=== PATIENT | female | born 1980 | race Caucasian/White ===

== ENCOUNTER → 2019-07-29 | Outpatient (CLI) | payer OTHER ==
--- NOTE | 2019-07-30 12:49 | MM ---
Reason for exam: screening (asymptomatic). Baseline mammogram. History: Family history of breast cancer in mother at age 58 and breast cancer in 2 aunts. Took hormonal contraceptives beginning at age 23. Physical Findings: Nurse did not find any significant physical abnormalities on exam. MG Screening Mammo w CAD Bilateral CC and MLO view(s) were taken. The breast tissue is extremely dense which could obscure a lesion on mammography. No significant findings. These results were verbally communicated with the patient and result sheet given to the patient on 07/29/19. ASSESSMENT: Benign, BI-RAD 2 RECOMMENDATION: Routine screening mammogram of both breasts in 1 year.
== END | disposition home or self-care (01) ==
LOC: RADMAMWWP 09:59
PROVIDERS: ATTEND Obstetrics & Gynecology
DX: Z12.31 Encounter for screening mammogram for malignant neoplasm of breast (principal); Z80.3 Family history of malignant neoplasm of breast
CPT/HCPCS: 77067

== ENCOUNTER → 2022-04-20 | Outpatient (CLI) | payer OTHER ==
--- NOTE | 2022-04-20 14:48 | US ---
EXAMINATION TYPE: US pelvic complete DATE OF EXAM: 04/20/2022 COMPARISON: NONE CLINICAL HISTORY: N92.6 irregular menses. Longer and more frequent menses TECHNIQUE: Transabdominal (TA). Transabdominal sonographic images of the pelvis were acquired. Date of LMP: 04/06/2022 EXAM MEASUREMENTS: Uterus: 9.0 x 4.3 x 3.5 cm Endometrial Stripe: 0.7 cm Right Ovary: 3.5 x 2.7 x 2.0 cm Left Ovary: 3.2 x 2.5 x 1.8 cm 1. Uterus: Anteverted Heterogenous 2. Endometrium: wnl 3. Right Ovary: follicles seen 4. Left Ovary: follicles seen 5. Bilateral Adnexa: prominent vessels visualized left adnexa 6. Posterior cul-de-sac: no free fluid Endometrial stripe is within normal limits. IMPRESSION: As above.
--- NOTE | 2022-04-21 10:00 | MM ---
Reason for Exam: Screening (asymptomatic). Last mammogram was performed 2 year(s) and 9 month(s) ago. Patient History: Menarche at age 15. First Full-Term at age 30. Hormonal Contraceptives, from age 23 until age 29. Maternal aunt had breast cancer. Maternal aunt had breast cancer. Mother had breast cancer, age 58. Last menstrual period: 04/18/2022 Risk Values: Lisa 5 year model risk: 1.1%. NCI Lifetime model risk: 18.8%. Prior Study Comparison: 07/29/2019 Bilateral Screening Mammogram, [facility]. Tissue Density: The breast tissue is extremely dense which could obscure a lesion on mammography. Findings: Analyzed By CAD. No suspicious groups of microcalcifications, spiculated or lobular masses, architectural distortion or other secondary signs of malignancy are mammographically apparent. Overall Assessment: Benign, BI-RAD 2 Management: Screening Mammogram of both breasts in 1 year. A negative mammogram report should not preclude additional follow up of suspicious palpable abnormalities. Patient should continue monthly self breast exam. A clinical breast exam by your physician is recommended on an annual basis and results should be correlated with mammographic findings. Electronically signed and approved by: Sina Galvan D.O. Radiologis
== END | disposition home or self-care (01) ==
LOC: RADUSWWP 14:03
PROVIDERS: ATTEND Family Medicine
DX: Z12.31 Encounter for screening mammogram for malignant neoplasm of breast (principal); N92.6 Irregular menstruation, unspecified; Z80.3 Family history of malignant neoplasm of breast
CPT/HCPCS: 76856; 77067